=== PATIENT | female | born 1980 | race Caucasian/White ===

== ENCOUNTER 2019-09-26 18:48 | Emergency (ER) | payer MEDICAID ==
[2019-09-26 19:10] VITALS: BP 150/105; PULSE 101
--- NOTE | 2019-09-26 20:05 | EDM.PDOC ---
ED HPI GENERAL MEDICAL PROBLEM - General Chief Complaint: Lower Extremity Injury/Pain Stated Complaint: INJURED RIGHT FOOT-DROPPED A CHAIR ON IT Time Seen by Provider: 09/26/19 19:13 Source of Information: Reports: Patient History Limitations: Reports: No Limitations - History of Present Illness INITIAL COMMENTS - FREE TEXT/NARRATIVE: Patient is a 38-year-old female who presents to the emergency department with complaints of pain to her right lateral foot. She states last evening she dropped a wooden bench on her foot and has had pain since that time. She is able to bear weight extremity, however it is painful. She has been taken Tylenol for pain. She has had surgery on the foot in the past as because her "bones were too long ". She denies any previous fracture to the extremity. Right Foot Pain Score (Numeric/FACES): 6 - Related Data Allergies Allergy/AdvReac Type Severity Reaction Status Date / Time Penicillins Allergy Severe Other Verified 09/26/19 19:10 rizatriptan [From Maxalt] AdvReac Severe Nausea and Verified 09/26/19 19:10 Vomiting sumatriptan [From Imitrex] AdvReac Severe Nausea and Verified 09/26/19 19:10 Vomiting Home Meds: Home Meds Acetaminophen/HYDROcodone [[place] 325-5 MG] 1 - 2 tab PO Q6H PRN #40 tablet 01/19/18 [Rx] Gabapentin [Neurontin] 300 mg PO DAILY PRN 09/26/19 [History] Promethazine [Phenadoz] 12.5 mg TOP BID PRN 09/26/19 [History] Rizatriptan Benzoate [Rizatriptan] 10 mg PO TID PRN 09/26/19 [History] Past Medical History - Past Health History Medical/Surgical History: Denies Medical/Surgical History HEENT History: Reports: Allergic Rhinitis, Sinusitis Cardiovascular History: Reports: None Respiratory History: Reports: Other (See Below) Other Respiratory History: acute URI Gastrointestinal History: Reports: Other (See Below) Other Gastrointestinal History: nausea, elevated liver enzymes Genitourinary History: Reports: None 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 , , 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: hx ectopic ; 2 SAB Musculoskeletal History: Reports: None Neurological History: Reports: Migraines Psychiatric History: Reports: Anxiety, Depression Endocrine/Metabolic History: Reports: None Hematologic History: Reports: Anemia Other Hematologic History: Pt states blood is "too thick." Immunologic History: Reports: None Oncologic (Cancer) History: Reports: None Dermatologic History: Reports: Other (See Below) Other Dermatologic History: skin infection - Infectious Disease History Infectious Disease History: Reports: Chicken Pox - Past Surgical History Head Surgeries/Procedures: Reports: None HEENT Surgical History: Reports: Tonsillectomy Cardiovascular Surgical History: Reports: None Respiratory Surgical History: Reports: None GI Surgical History: Reports: None Female Surgical History: Reports: Other (See Below) Other Female Surgeries/Procedures: Left Salpingoectomy due to eptopic pregancy-2013. Endocrine Surgical History: Reports: None Neurological Surgical History: Reports: None Musculoskeletal Surgical History: Reports: Other (See Below) Other Musculoskeletal Surgeries/Procedures:: pt states that she has had her finger sewn back on---left 4th digit Oncologic Surgical History: Reports: None Social & Family History - Family History Family Medical History: Noncontributory - Caffeine Use Caffeine Use: Reports: Coffee, Soda Caffeine Use Comment: 1-2 per day - Living Situation & Occupation Living situation: Reports: Other Occupation: Unemployed Review of Systems - Review of Systems Review Of Systems: Comprehensive ROS is negative, except as noted in HPI. ED EXAM, GENERAL - Physical Exam Exam: See Below Exam Limited By: No Limitations General Appearance: Alert, WD/WN, No Apparent Distress Respiratory/Chest: No Respiratory Distress, Lungs Clear, Normal Breath Sounds, No Accessory Muscle Use, Chest Non-Tender Cardiovascular: Normal Peripheral Pulses, Regular Rate, Rhythm, No Edema, No Gallop, No JVD, No Murmur, No Rub Extremities: Other (Tenderness to palpation over the dorsal lateral aspect of the right foot. Small amount of edema and ecchymosis present. CMS intact distal to the injury.) Course - Vital Signs Last Recorded V/S: Last Vital Signs Temp 99.1 F 09/26/19 19:04 Pulse 101 H 09/26/19 19:04 Resp 18 09/26/19 19:04 BP 150/105 H 09/26/19 19:04 Pulse Ox 99 09/26/19 19:04 - Orders/Labs/Meds Orders: Active Orders 24 hr Category Date Time Status DME for Discharge [COMM] Routine Oth 09/26/19 20:32 Ordered - Re-Assessments/Exams Free Text/Narrative Re-Assessment/Exam: 09/26/19 20:33 X-ray of the right foot was negative for any acute fractures. Patient has a walking boot at home. I have applied Sandip wrap to the right foot. We will give her crutches to use as needed for the next few days. Recommend ice and elevation. Discussed that she still having significant discomfort after 1 week, would like her to follow-up with Dr. Edward for evaluation. Discharge instructions as documented. Departure - Departure Time of Disposition: 20:34 Disposition: Home, Self-Care 01 Condition: Good Clinical Impression: Contusion of foot, right Qualifiers: Encounter type: initial encounter Qualified Code(s): S90.31XA - Contusion of right foot, initial encounter - Discharge Information *PRESCRIPTION DRUG MONITORING PROGRAM REVIEWED*: No *COPY OF PRESCRIPTION DRUG MONITORING REPORT IN PATIENT DESTINY: No Instructions: Foot Contusion, [id number] Referrals: Pascual Edward MD [Physician] - Forms: ED Department Discharge Additional Instructions: You were seen in the emergency department today for pain to your right lateral foot after dropping a bench on it. X-rays were completed and showed no acute fractures. Your pain is due to a soft tissue injury, contusion of the foot. An Sandip wrap has been applied to your foot for comfort. You have been provided crutches. You may use these for comfort for the next few days. You may also try using your walking boot that you have at home. Recommend that you ice and elevate foot intermittently over the next few days. You may use [id number] ibuprofen or Tylenol as needed for pain. If you are still having significant pain to the foot after 1 week, recommend that you follow-up with Dr. Edward for reevaluation. Return to the ER as needed. Sepsis Event Note (ED) - Evaluation Sepsis Screening Result: No Definite Risk - Focused Exam Vital Signs: Vital Signs Temp Pulse Resp BP Pulse Ox 09/26/19 19:04 99.1 F 101 H 18 150/105 H 99 - My Orders Last 24 Hours: My Active Orders 09/26/19 20:32 DME for Discharge [COMM] Routine - Assessment/Plan Last 24 Hours: My Active Orders 09/26/19 20:32 DME for Discharge [COMM] Routine
--- NOTE | 2019-09-26 20:26 | CR ---
Right foot: 4 views of the right foot were obtained. Comparison: Previous foot exam of 08/18/16. Joint spaces are preserved. No discrete fracture, dislocation or other bony abnormality is appreciated. Impression: 1. No abnormality is appreciated on right foot exam. Diagnostic code #1 This report was dictated in MDT
== END 2019-09-26 20:42 | disposition home or self-care (01) ==
LOC: JD.ED 18:48
DX: S90.31XA Contusion of right foot, initial encounter (principal); Z88.0 Allergy status to penicillin; Z88.8 Allergy status to other drugs, medicaments and biological substances; Z79.899 Other long term (current) drug therapy; W20.8XXA Other cause of strike by thrown, projected or falling object, initial encounter
CPT/HCPCS: 73630-26-RT; 73630-RT; 99282; 99283-25

== ENCOUNTER 2019-10-01 16:30 | Emergency (ER) | payer MEDICAID ==
[2019-10-01] MEDS ORDERED: Promethazine 25 MG/ML SDV IM ONE (16:50)
[2019-10-01] MEDS ORDERED: Ketorolac 60 MG/2 ML SDV IM ONE (16:50)
[2019-10-01] MEDS ORDERED: diphenhydrAMINE 50 MG/ML SDV IM ONE (16:51)
--- NOTE | 2019-10-01 17:02 | EDM.PDOC ---
ED HPI GENERAL MEDICAL PROBLEM - General Chief Complaint: Headache Stated Complaint: MIGRAINE Time Seen by Provider: 10/01/19 16:49 Source of Information: Reports: Patient, RN Notes Reviewed History Limitations: Reports: No Limitations - History of Present Illness INITIAL COMMENTS - FREE TEXT/NARRATIVE: Patient is a 39-year-old female who presents to the ED for the evaluation of her migraine headache. She notes that she is prone to getting migraine headaches, she states that she started her menses yesterday, and developed a migraine today. She states this is very typical for her. Her headache is on the right side of her head, with a throbbing/pounding in nature. She notes that she usually goes [facility], but they were busy and could not fit her into the schedule. So she comes to the ER for management. She states she usually gets a shot of Toradol, and then either some Phenergan or Zofran. She notes this does resolve her headache pretty well. She does have nausea and vomiting, light and sound sensitivity. She states she is not seeing any spots in her vision. She has already taken her Maxalt today for this. She denies any fever/chills, cough/shortness of breath, or any sort of abdomen pain. Headache Pain Score (Numeric/FACES): 8 - Related Data Allergies Allergy/AdvReac Type Severity Reaction Status Date / Time Penicillins Allergy Severe Other Verified 10/01/19 16:44 rizatriptan [From Maxalt] AdvReac Severe Nausea and Verified 10/01/19 16:44 Vomiting sumatriptan [From Imitrex] AdvReac Severe Nausea and Verified 10/01/19 16:44 Vomiting Home Meds: Home Meds Acetaminophen/HYDROcodone [[place] 325-5 MG] 1 - 2 tab PO Q6H PRN #40 tablet 01/19/18 [Rx] Gabapentin [Neurontin] 300 mg PO DAILY PRN 09/26/19 [History] Promethazine [Phenadoz] 12.5 mg TOP BID PRN 09/26/19 [History] Rizatriptan Benzoate [Rizatriptan] 10 mg PO TID PRN 09/26/19 [History] Past Medical History HEENT History: Reports: Allergic Rhinitis, Sinusitis Gastrointestinal History: Reports: Other (See Below) Other Gastrointestinal History: hx/o elevated liver enzymes 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 , , 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 Musculoskeletal Surgical History: Reports: Other (See Below) Other Musculoskeletal Surgeries/Procedures:: pt states that she has had her finger sewn back on---left 4th digit Social & Family History - Family History Family Medical History: Noncontributory - Tobacco Use Smoking Status *Q: Current Every Day Smoker Years of Tobacco use: 15 Packs/Tins Daily: 0.5 - Caffeine Use Caffeine Use: Reports: None Caffeine Use Comment: 1-2 per day - Recreational Drug Use Recreational Drug Use: Yes Drug Use in Last 12 Months: No - Living Situation & Occupation Living situation: Reports: Other Occupation: Unemployed ED ROS GENERAL - Review of Systems Review Of Systems: Comprehensive ROS is negative, except as noted in HPI. - Physical Exam Exam: See Below Exam Limited By: No Limitations General Appearance: Alert, WD/WN, No Apparent Distress Head Exam: Atraumatic, Normocephalic Neck: Normal Inspection, Supple, Non-Tender, Full Range of Motion Respiratory/Chest: No Respiratory Distress, Lungs Clear, Normal Breath Sounds, No Accessory Muscle Use, Chest Non-Tender Cardiovascular: Normal Peripheral Pulses, Regular Rate, Rhythm, No Murmur Neuro Exam (Abbreviated): Alert, Oriented, Normal Cognition, No Motor/Sensory Deficits Extremities: Normal Inspection, Normal Capillary Refill Psychiatric: Normal Affect, Normal Mood Skin Exam: Warm, Dry, Intact, Normal Color, No Rash Course - Vital Signs Last Recorded V/S: Last Vital Signs Temp 97.4 F 10/01/19 16:43 Pulse 87 10/01/19 16:43 Resp 16 10/01/19 16:43 BP 127/94 H 10/01/19 16:43 Pulse Ox 98 10/01/19 16:43 - Orders/Labs/Meds Meds: Medications Discontinued Medications Generic Name Dose Route Start Last Admin Trade Name Betty PRCasimiro Reason Stop Dose Admin Diphenhydramine HCl 25 mg 10/01/19 16:51 10/01/19 17:18 Benadryl IM 10/01/19 16:52 25 mg ONETIME ONE Administration Ketorolac Tromethamine 60 mg 10/01/19 16:50 10/01/19 17:15 Toradol IM 10/01/19 16:51 60 mg ONETIME ONE Administration Promethazine HCl 25 mg 10/01/19 16:50 10/01/19 17:16 Phenergan IM 10/01/19 16:51 25 mg ONETIME ONE Administration - Re-Assessments/Exams Free Text/Narrative Re-Assessment/Exam: 10/01/19 17:02 Patient presents to the ED for a migraine. She will be given IM shots of Toradol, Benadryl and Phenergan for management. 10/01/19 17:59 Patient states she is feeling much better, is ready to go home at this time. She will be given discharge instructions and other general recommendations and discharged home. Departure - Departure Time of Disposition: 17:59 Disposition: Home, Self-Care 01 Condition: Good Clinical Impression: Migraine Qualifiers: Migraine type: without aura Status migrainosus presence: without status migrainosus Intractability: not intractable Qualified Code(s): G43.009 - Migraine without aura, not intractable, without status migrainosus - Discharge Information *PRESCRIPTION DRUG MONITORING PROGRAM REVIEWED*: No *COPY OF PRESCRIPTION DRUG MONITORING REPORT IN PATIENT DESTINY: No Instructions: Migraine Headache, [id number] Referrals: PCP,None [Primary Care Provider] - Forms: ED Department Discharge Additional Instructions: You were evaluated in the ED for your headache. You were given a combination of medications for management. This did seem to provide you pretty good relief of your symptoms. Recommend that you go home and rest in a quiet, darkened room. Try also to keep well hydrated. Please return to the ED if your symptoms should change or worsen. Sepsis Event Note (ED) - Evaluation Sepsis Screening Result: No Definite Risk - Focused Exam Vital Signs: Vital Signs Temp Pulse Resp BP Pulse Ox 10/01/19 16:43 97.4 F 87 16 127/94 H 98
[2019-10-01 18:02] VITALS: PULSE 70
[2019-10-01 18:36] VITALS: BP 129/88
== END 2019-10-01 18:32 | disposition home or self-care (01) ==
LOC: JD.ED 16:30
DX: G43.009 Migraine without aura, not intractable, without status migrainosus (principal); F17.210 Nicotine dependence, cigarettes, uncomplicated; Z88.0 Allergy status to penicillin; Z88.8 Allergy status to other drugs, medicaments and biological substances
CPT/HCPCS: 96372; 99283; J1200; J1885; J2550

== ENCOUNTER 2019-10-23 16:36 | Emergency (ER) | payer MEDICAID ==
[2019-10-23 16:45] VITALS: BP 142/75; PULSE 110
[2019-10-23] MEDS ORDERED: Ketorolac 30 MG/ML SDV IM ONE (16:55)
[2019-10-23] MEDS ORDERED: Promethazine 25 MG/ML SDV IM ONE (16:56)
--- NOTE | 2019-10-23 17:15 | EDM.PDOC ---
ED HPI GENERAL MEDICAL PROBLEM - General Chief Complaint: Headache Stated Complaint: MIGRAINE Time Seen by Provider: 10/23/19 16:44 Source of Information: Reports: Patient History Limitations: Reports: No Limitations - History of Present Illness INITIAL COMMENTS - FREE TEXT/NARRATIVE: Patient is a 39-year-old female presenting to the emergency department with complaints of a migraine headache. Symptoms started a few hours prior to coming to ER. She describes it as generalized pain throughout her head with light sensitivity as well as nausea and vomiting. Patient states that she gets a migraine every month before she starts her period. This feels like a typical migraine for her. She has taken her Maxalt today with no relief. She denies any dizziness or paresthesia. She has been seen in the ER and the [facility] on a number of occasions for this. States she normally gets a injection of Toradol and Phenergan which works well for her. She does state the last time she was in the ER she received an injection of Benadryl as well, however that made her quite tired and she felt hung over the next day. Headache Pain Score (Numeric/FACES): 7 - Related Data Allergies Allergy/AdvReac Type Severity Reaction Status Date / Time Penicillins Allergy Severe Other Verified 10/23/19 16:46 rizatriptan [From Maxalt] AdvReac Severe Nausea and Verified 10/23/19 16:46 Vomiting sumatriptan [From Imitrex] AdvReac Severe Nausea and Verified 10/23/19 16:46 Vomiting Home Meds: Home Meds Gabapentin [Neurontin] 300 mg PO DAILY PRN 09/26/19 [History] Promethazine [Phenadoz] 12.5 mg TOP BID PRN 09/26/19 [History] Past Medical History - Past Health History Medical/Surgical History: Denies Medical/Surgical History HEENT History: Reports: Allergic Rhinitis, Sinusitis Cardiovascular History: Reports: None Respiratory History: Reports: Other (See Below) Other Respiratory History: acute URI Gastrointestinal History: Reports: Other (See Below) Other Gastrointestinal History: hx/o elevated liver enzymes Genitourinary History: Reports: None 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 , , 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: hx ectopic ; 2 SAB Musculoskeletal History: Reports: None Neurological History: Reports: Migraines Psychiatric History: Reports: Anxiety, Depression Endocrine/Metabolic History: Reports: None Hematologic History: Reports: Anemia Other Hematologic History: Pt states blood is "too thick." Immunologic History: Reports: None Oncologic (Cancer) History: Reports: None Dermatologic History: Reports: Other (See Below) Other Dermatologic History: skin infection - Infectious Disease History Infectious Disease History: Reports: None - Past Surgical History HEENT Surgical History: Reports: Tonsillectomy Cardiovascular Surgical History: Reports: None Respiratory Surgical History: Reports: None Female Surgical History: Reports: Tubal Ligation, Other (See Below) Other Female Surgeries/Procedures: Left Salpingectomy due to eptopic pregancy-2013. Endocrine Surgical History: Reports: None Musculoskeletal Surgical History: Reports: Other (See Below) Other Musculoskeletal Surgeries/Procedures:: pt states that she has had her finger sewn back on---left 4th digit. Foot surgery. Oncologic Surgical History: Reports: None Social & Family History - Family History Family Medical History: Noncontributory - Tobacco Use Smoking Status *Q: Current Every Day Smoker Years of Tobacco use: 15 Packs/Tins Daily: 1 - Caffeine Use Caffeine Use: Reports: Energy Drinks, Soda Caffeine Use Comment: 1-2 per day - Recreational Drug Use Recreational Drug Use: No - Living Situation & Occupation Living situation: Reports: Other Occupation: Unemployed ED ROS GENERAL - Review of Systems Review Of Systems: Comprehensive ROS is negative, except as noted in HPI. - Physical Exam Exam: See Below Exam Limited By: No Limitations General Appearance: Alert, WD/WN, No Apparent Distress Eye Exam: Bilateral Eye: Normal Inspection, PERRL Respiratory/Chest: No Respiratory Distress, Lungs Clear, Normal Breath Sounds, No Accessory Muscle Use, Chest Non-Tender Cardiovascular: Normal Peripheral Pulses, Regular Rate, Rhythm, No Edema, No Gallop, No JVD, No Murmur, No Rub Neuro Exam (Abbreviated): Alert, Oriented, CN II-XII Intact, Normal Cognition, Normal Gait, Normal Reflexes, No Motor/Sensory Deficits Psychiatric: Normal Affect, Normal Mood Skin Exam: Warm, Dry, Intact, Normal Color, No Rash Course - Vital Signs Last Recorded V/S: Last Vital Signs Temp 97.2 F 10/23/19 16:43 Pulse 110 H 10/23/19 16:43 Resp 16 10/23/19 16:43 BP 142/75 H 10/23/19 16:43 Pulse Ox 100 10/23/19 16:43 - Orders/Labs/Meds Meds: Medications Discontinued Medications Generic Name Dose Route Start Last Admin Trade Name Betty AMADOR Reason Stop Dose Admin Ketorolac Tromethamine 60 mg 10/23/19 16:55 10/23/19 17:27 Toradol IM 10/23/19 16:56 60 mg ONETIME ONE Administration Promethazine HCl 25 mg 10/23/19 16:56 10/23/19 17:28 Phenergan IM 10/23/19 16:57 25 mg ONETIME ONE Administration - Re-Assessments/Exams Free Text/Narrative Re-Assessment/Exam: 10/23/19 18:06 Patient is feeling much better after the Toradol and Phenergan injection. We will discharge her home. Discharge instructions as documented. Departure - Departure Time of Disposition: 18:06 Disposition: Home, Self-Care 01 Condition: Good Clinical Impression: Migraine - Discharge Information *PRESCRIPTION DRUG MONITORING PROGRAM REVIEWED*: No *COPY OF PRESCRIPTION DRUG MONITORING REPORT IN PATIENT DESTINY: No Instructions: Migraine Headache, [id number] Referrals: PCP,None [Primary Care Provider] - Forms: ED Department Discharge Additional Instructions: You were seen in the emergency department this evening with complaints of a migraine headache. While in the injection of Toradol and Phenergan which you state did improve your headache significantly. Recommend that you go home and rest in a quiet dark room. You may continue to use [id number] Tylenol, ibuprofen, and your prescription Maxalt as needed for headaches. Return to ER as needed. Sepsis Event Note (ED) - Evaluation Sepsis Screening Result: No Definite Risk - Focused Exam Vital Signs: Vital Signs Temp Pulse Resp BP Pulse Ox 10/23/19 16:43 97.2 F 110 H 16 142/75 H 100
== END 2019-10-23 18:11 | disposition home or self-care (01) ==
LOC: JD.ED 16:36
DX: G43.909 Migraine, unspecified, not intractable, without status migrainosus (principal); F17.210 Nicotine dependence, cigarettes, uncomplicated; Z98.51 Tubal ligation status; Z88.0 Allergy status to penicillin; Z88.8 Allergy status to other drugs, medicaments and biological substances; Z79.899 Other long term (current) drug therapy
CPT/HCPCS: 96372; 99283; J1885; J2550

== ENCOUNTER 2019-11-21 06:51 | Day surgery (SDC) | payer MEDICAID ==
--- NOTE | 2019-11-20 12:25 | PCM.PREANE ---
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, ETOH:occasionally), Cough (chronic dry) Cardiovascular: Palpitations (anxiety) Gastrointestinal: No Symptoms (GERD-controlled) Neurological: Headache (Migraines), Numbness (right foot two toes-from prior foot surgery (3yrs ago)), Seizure (last noted 2014) Other: Reports: None, Easy Bruising, Sinus Problem (seasonal allergies), Depression, Anxiety - Physical Assessment NPO Status Date: 11/20/19 NPO Status Time: 22:00 Vital Signs: HR:84 Sat:100% Temp:97.7 Resp:16 B/P:131/91 Height: 1.63 m Weight: 59 kg ASA Class: 2 Mental Status: Alert & Oriented x3 Airway Class: Mallampati = 2 Dentition: Reports: Normal Dentition, Caries Thyro-Mental Finger Breadths: 3 Mouth Opening Finger Breadths: 3 ROM/Head Extension: Full Lungs: Clear to Auscultation, Normal Respiratory Effort Cardiovascular: Regular Rate, Regular Rhythm, No Murmurs - Lab Values: All labs reviewed and noted and within acceptable ranges to proceed with scheduled procedure. - Allergies Allergies/Adverse Reactions: Allergies Allergy/AdvReac Type Severity Reaction Status Date / Time Penicillins Allergy Severe Other Verified 11/20/19 14:43 sumatriptan [From Imitrex] AdvReac Severe Nausea and Verified 11/20/19 14:43 Vomiting - Anesthesia Plan Pre-Op Medication Ordered: None - Acknowledgements Anesthesia Type Planned: General Anesthesia Pt an Appropriate Candidate for the Planned Anesthesia: Yes Alternatives and Risks of Anesthesia Discussed w Pt/Guardian: Yes Pt/Guardian Understands and Agrees with Anesthesia Plan: Yes PreAnesthesia Questionnaire - Past Health History Medical/Surgical History: Denies Medical/Surgical History HEENT History: Reports: Allergic Rhinitis, Sinusitis Cardiovascular History: Reports: None Respiratory History: Reports: Other (See Below) Other Respiratory History: acute URI Gastrointestinal History: Reports: Other (See Below) Other Gastrointestinal History: hx/o elevated liver enzymes Genitourinary History: Reports: None MILLER HEAD History: Reports: Ectopic , , Spontaneous Other OB/BYN History: hx ectopic ; 2 SAB Musculoskeletal History: Reports: None Neurological History: Reports: Migraines Psychiatric History: Reports: Anxiety, Depression Endocrine/Metabolic History: Reports: None Hematologic History: Reports: Anemia Other Hematologic History: Pt states blood is "too thick." Immunologic History: Reports: None Oncologic (Cancer) History: Reports: None Dermatologic History: Reports: Other (See Below) Other Dermatologic History: skin infection - Infectious Disease History Infectious Disease History: Reports: None - Past Surgical History HEENT Surgical History: Reports: Tonsillectomy Cardiovascular Surgical History: Reports: None Respiratory Surgical History: Reports: None Female Surgical History: Reports: Tubal Ligation, Other (See Below) Other Female Surgeries/Procedures: Left Salpingectomy due to eptopic pregancy-2012. Endocrine Surgical History: Reports: None Musculoskeletal Surgical History: Reports: Other (See Below) Other Musculoskeletal Surgeries/Procedures:: pt states that she has had her finger sewn back on---left 4th digit. Foot surgery. Oncologic Surgical History: Reports: None - HOME MEDS Home Medications: Home Meds Promethazine [Phenadoz] 12.5 mg TOP BID PRN 09/26/19 [History] Gabapentin [Neurontin] 600 mg PO BEDTIME PRN 11/20/19 [History] Hydrocodone/Acetaminophen [[place] 5-325 Tablet] 1 tab PO Q6H PRN 11/20/19 [History] Multivitamin 1 tab PO DAILY 11/20/19 [History] Rizatriptan Benzoate [Rizatriptan] 10 mg PO ASDIRECTED PRN 11/20/19 [History] - CURRENT (IN HOUSE) MEDS Current Meds: Current Medications Lactated Ringer's (Ringers, Lactated) 1,000 mls @ 125 mls/hr IV ASDIRECTED NICOLÁS Stop: 11/21/19 23:00 Lidocaine/Sodium Bicarbonate (Buffered Lidocaine 1% In Ns 8.4%) 0.25 ml IDERM ONETIME PRN PRN Reason: Prior to IV Start Stop: 11/21/19 18:00 Sodium Chloride (Saline Flush) 10 ml FLUSH ASDIRECTED PRN PRN Reason: Keep Vein Open Stop: 11/21/19 18:00
[~2019-11-21 06:51] MED LIST: Lidocaine 1%/Sod Bicarbonate in NS 8.4% 1 ML Syringe IDERM PRN; Sodium Chloride 0.9% 10 ML Syringe FLUSH PRN
[2019-11-21] MEDS ORDERED: Lidocaine 1% 4 ML ONE (07:04)
[2019-11-21] MEDS ORDERED: Ketorolac 30 MG/ML SDV ONE (07:04)
[2019-11-21] MEDS ORDERED: ceFAZolin 1 GM Vial ONE (07:04)
[2019-11-21] MEDS ORDERED: Dexamethasone 4 MG/ML 5 ML MDV ONE (07:04)
[2019-11-21] MEDS ORDERED: Ondansetron 4 MG/2 ML SDV ONE (07:04)
[2019-11-21] MEDS ORDERED: Rocuronium 50 MG/5 ML Vial ONE (07:04)
[2019-11-21] MEDS ORDERED: HYDROmorphone 0.5 MG/0.5 ML Syringe ONE (07:04)
[2019-11-21] MEDS ORDERED: Lactated Ringers 1,000 ML ONE (07:04)
[2019-11-21] MEDS ORDERED: Propofol 200 MG/20 ML SDV ONE (07:04)
[2019-11-21] MEDS ORDERED: fentaNYL 250 MCG/5 ML SDV ONE (07:05)
[2019-11-21] MEDS ORDERED: Midazolam 1 MG/ML 2 ML SDV ONE (07:05)
--- NOTE | 2019-11-21 07:05 | PCM.OPNOTE ---
- General Post-Op/Procedure Note Date of Surgery/Procedure: 11/21/19 Operative Procedure(s): Total vaginal hysterectomy Findings: SVE showed a mobile, anteverted uterus. After uterus removed grossly normal right ovary. Difficult to appreciate left ovary. Pre Op Diagnosis: Abnormal uterine bleeding - declines medical management Post-Op Diagnosis: Same Anesthesia Technique: General ET Tube Primary Surgeon: Génesis Mac Secondary Surgeon: Natalie Ramírez Anesthesia Provider: Jasmyne Ferraro Reason Account Planner Was Necessary: Speed/safety of procedure Pathology: Cervix and uterus sent to pathology for evaluation Fluid Replacement, Intraop: 1,100 Output, Urine Amount: 300 EBL in mLs: 20 Complications: None Condition: Good Free Text/Narrative:: The risks, benefits, indications, potential complications, and alternatives were explained to the patient and informed consent obtained. The patient was taken to the Operating Room where general anesthesia was induced without complication and found to be adequate. The patient was placed in dorsal lithotomy with Winston stirrups and an exam under anesthesia revealed the findings detailed above. The patient was then prepped and draped in the usual sterile fashion. Carr catheter placed in the bladder. A weighted speculum was placed in the vagina, and the cervix was grasped with a double tooth tenaculum. The cervix was injected circumferentially with ~20 mL of 1% lidocaine with dilute epinephrine. The cervix was then circumferentially incised with a scalpel. The posterior cul-de-sac was entered sharply without difficulty with Dixon scissors. An 0-Vicryl pop-off suture was placed posteriorly to include the posterior vaginal mucosa and the posterior peritoneum. The short weighted speculum was replaced with a long weighted speculum into the peritoneal cavity posteriorly. The bladder was dissected away from the pubovesical cervical fascia anteriorly with a sponge and blunt dissection. The uterosacral ligaments were grasped on either side with the LigaSure, cauterized, and transected. A raytec was used for further blunt dissection of the bladder away from the pubovesical cervical fascia and then the anterior cul de sac was entered sharply with Metzenbaum scissors. The cardinal ligaments were then serially clamped on both sides with the LigaSure, cauterized, and transected. The uterine arteries were then clamped with the LigaSure, cauterized, and transected. Hemostasis was adequate. Both cornua were then clamped with the LigaSure, cauterized, and transected and the uterus was removed. The posterior peritoneum was closed with a running, locked 0 Vicryl suture. The vaginal cuff was then closed with two running sutures of 0 Vicryl started at either apex and run towards the mid-line. Hemostasis was noted. All sponge, lap, needle, and instrument counts were correct x 2. The patient tolerated the procedure well and there were no complications.
[2019-11-21] MEDS: Lactated Ringers 1,000 ML IV SCH ×2 (07:13→15:06)
[2019-11-21] MEDS ORDERED: Lidocaine 1% with EPINEPHrine 1:100,000 20 ML MDV ONE (07:26)
[2019-11-21] MEDS ORDERED: Scopolamine 1.5 MG Transdermal Patch TRDERM SCH (08:00)
[2019-11-21] MEDS ORDERED: fentaNYL 100 MCG/2 ML SDV IVPUSH PRN (08:22)
[2019-11-21] MEDS ORDERED: ePHEDrine 50 MG/ML SDV IVPUSH PRN (08:22)
[2019-11-21] MEDS ORDERED: HYDROmorphone 0.5 MG/0.5 ML Syringe IVPUSH PRN (08:22)
[2019-11-21] MEDS ORDERED: Ondansetron 4 MG/2 ML SDV IVPUSH PRN (08:22)
[2019-11-21] MEDS ORDERED: Albuterol 0.083% 2.5 MG/3 ML Neb Soln NEB PRN (08:22)
[2019-11-21] MEDS ORDERED: diphenhydrAMINE 50 MG/ML SDV IVPUSH PRN (08:22)
[2019-11-21] MEDS ORDERED: Haloperidol Lactate 5 MG/ML SDV IVPUSH ONE (09:00)
--- NOTE | 2019-11-21 09:14 | PCM.POSTAN ---
POST ANESTHESIA ASSESSMENT - MENTAL STATUS Mental Status: Alert - VITAL SIGNS Vital Signs: Last Vital Signs Temp 97.7 11/21/19906 Pulse 95 11/21/19906 Resp 15 11/21/19906 BP 132/88 11/21/19906 Pulse Ox 100 11/21/19906 - RESPIRATORY Respiratory Status: Respiratory Rate WNL, Airway Patent, O2 Saturation Stable, Supplemental Oxygen - CARDIOVASCULAR CV Status: Pulse Rate WNL, Blood Pressure Stable - GASTROINTESTINAL GI Status: No Symptoms - POST OP HYDRATION Hydration Status: Adequate & Stable
[2019-11-21] MEDS ORDERED: Acetaminophen/oxyCODONE 325-5 MG Tab PO PRN (09:57)
--- NOTE | 2019-11-21 10:20 | PCM48HPAN ---
Post Anesthesia Note - EVALUATION WITHIN 48HRS OF ANESTHETIC Vital Signs in Normal Range: Yes Patient Participated in Evaluation: Yes Respiratory Function Stable: Yes Airway Patent: Yes Cardiovascular Function Stable: Yes Hydration Status Stable: Yes Pain Control Satisfactory: Yes Nausea and Vomiting Control Satisfactory: Yes Mental Status Recovered: Yes Vital Signs: Last Vital Signs Temp 36.4 C 11/21/19 09:50 Pulse 69 11/21/19 09:50 Resp 10 L 11/21/19 09:50 BP 119/80 11/21/19 09:50 Pulse Ox 97 11/21/19 09:50
[2019-11-21 13:59] VITALS: BP 113/83; PULSE 70
== END 2019-11-21 11:55 | disposition home or self-care (01) ==
LOC: JD.SDS 06:51
PROVIDERS: ATTEND Obstetrics & Gynecology
DX: N80.0 Endometriosis of uterus (principal); N72 Inflammatory disease of cervix uteri; G43.909 Migraine, unspecified, not intractable, without status migrainosus; F17.210 Nicotine dependence, cigarettes, uncomplicated; G47.33 Obstructive sleep apnea (adult) (pediatric); K21.9 Gastro-esophageal reflux disease without esophagitis; F32.9 Major depressive disorder, single episode, unspecified; F41.9 Anxiety disorder, unspecified; Z98.890 Other specified postprocedural states; Z79.899 Other long term (current) drug therapy; Z88.0 Allergy status to penicillin; Z88.8 Allergy status to other drugs, medicaments and biological substances
CPT/HCPCS: 36415; 58260; 80048; 85025; 86850; 86900; 86901; A9270; J0690; J1100; J1170; J1885; J2001; J2250; J2370; J2405; J2704; J2710; J3010; J7120; 00840

== ENCOUNTER 2020-01-31 20:11 | Day surgery (SDC) | payer MEDICAID ==
[2020-01-31] MEDS ORDERED: Sodium Chloride 0.9% 1,000 ML IV STA (20:38)
--- NOTE | 2020-01-31 20:41 | EDM.PDOC ---
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 She is 9 weeks post vaginal hysterectomy. States she has had intercourse prior to this evening and never had problems with bleeding. Bleeding began about 15 minutes prior to coming to ER. She denies any pain associated with the bleeding. Vaginal Pain Score (Numeric/FACES): 6 - Related Data Allergies Allergy/AdvReac Type Severity Reaction Status Date / Time Penicillins Allergy Unknown Other Verified 02/01/20 08:31 sumatriptan [From Imitrex] AdvReac Mild Nausea and Verified 02/01/20 08:31 Vomiting Home Meds: Home Meds Promethazine [Phenadoz] 12.5 mg TOP BID PRN 09/26/19 [History] Gabapentin [Neurontin] 600 mg PO BEDTIME PRN 11/20/19 [History] Multivitamin 1 tab PO DAILY 11/20/19 [History] Rizatriptan Benzoate [Rizatriptan] 10 mg PO ASDIRECTED PRN 11/20/19 [History] Acetaminophen/oxyCODONE [Percocet 325-5 MG] 1 - 2 tab PO Q6H PRN #30 tab 11/21/19 [Rx] Past Medical History - Past Health History Medical/Surgical History: Denies Medical/Surgical History HEENT History: Reports: Allergic Rhinitis, Sinusitis Cardiovascular History: Reports: None Respiratory History: Reports: Other (See Below) Other Respiratory History: acute URI Gastrointestinal History: Reports: Other (See Below) Other Gastrointestinal History: hx/o elevated liver enzymes Genitourinary History: Reports: None 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: Reports: Ectopic , , Spontaneous Other 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: hx ectopic ; 2 SAB Musculoskeletal History: Reports: None Neurological History: Reports: Migraines Psychiatric History: Reports: Anxiety, Depression Endocrine/Metabolic History: Reports: None Hematologic History: Reports: Anemia Other Hematologic History: Pt states blood is "too thick." Immunologic History: Reports: None Oncologic (Cancer) History: Reports: None Dermatologic History: Reports: Other (See Below) Other Dermatologic History: skin infection - Infectious Disease History Infectious Disease History: Reports: None - Past Surgical History HEENT Surgical History: Reports: Tonsillectomy GI Surgical History: Reports: None Female Surgical History: Reports: Tubal Ligation, Other (See Below) Other Female Surgeries/Procedures: Left Salpingectomy due to eptopic pregancy-2012. Endocrine Surgical History: Reports: None Musculoskeletal Surgical History: Reports: Other (See Below) Other Musculoskeletal Surgeries/Procedures:: pt states that she has had her finger sewn back on---left 4th digit. Foot surgery. Social & Family History - Family History Family Medical History: No Pertinent Family History - Tobacco Use Tobacco Use Status *Q: Current Every Day Tobacco User Years of Tobacco use: 20 Packs/Tins Daily: 0.2 - Caffeine Use Caffeine Use: Reports: Energy Drinks, Soda - Recreational Drug Use Recreational Drug Use: Yes Drug Use in Last 12 Months: No Recreational Drug Type: Reports: Other (see below) Other Recreational Drug Type: adderral - Living Situation & Occupation Living situation: Reports: Other Occupation: Unemployed ED ROS GENERAL - Review of Systems Review Of Systems: Comprehensive ROS is negative, except as noted in HPI. Course - Vital Signs Last Recorded V/S: Last Vital Signs Temp 98.4 F 02/01/20 08:37 Pulse 81 02/01/20 08:37 Resp 14 02/01/20 08:37 BP 106/59 L 02/01/20 08:37 Pulse Ox 100 02/01/20 08:37 - Orders/Labs/Meds Orders: Active Orders 24 hr Category Date Time Status Patient Status [ADT] Routine ADT 01/31/20 21:03 Active Patient Status [ADT] Routine ADT 01/31/20 22:46 Active Schedule Procedure [COMM] Stat Oth 01/31/20 21:04 Ordered Sequential Compression Device [OM.PC] Per Unit Routine Oth 01/31/20 22:47 Ordered Resuscitation Status Routine Resus Stat 01/31/20 22:46 Ordered Labs: Laboratory Tests 01/31/20 01/31/20 01/31/20 Range/Units 20:40 20:40 20:40 WBC 9.28 (3.98-10.04) K/mm3 RBC 4.13 (3.98-5.22) M/mm3 Hgb 13.3 (11.2-15.7) gm/dl Hct 41.0 (34.1-44.9) % MCV 99.3 H (79.4-94.8) fl MCH 32.2 (25.6-32.2) pg MCHC 32.4 (32.2-35.5) g/dl RDW Std Deviation 45.3 (36.4-46.3) fL Plt Count 262 (182-369) K/mm3 MPV 10.4 (9.4-12.3) fl Neut % (Auto) 72.6 H (34.0-71.1) % Lymph % (Auto) 22.3 (19.3-51.7) % Porter % (Auto) 3.8 L (4.7-12.5) % Eos % (Auto) 1.0 (0.7-5.8) Baso % (Auto) 0.1 (0.1-1.2) % Neut # (Auto) 6.74 H (1.56-6.13) K/mm3 Lymph # (Auto) 2.07 (1.18-3.74) K/mm3 Porter # (Auto) 0.35 (0.24-0.36) K/mm3 Eos # (Auto) 0.09 (0.04-0.36) K/mm3 Baso # (Auto) 0.01 (0.01-0.08) K/mm3 Manual Slide Review SARS-CoV-2 RNA (JORDY) (NEGATIVE) SARS CoV-2 RNA Rapid JORDY (NEGATIVE) Blood Type O POSITIVE Gel Antibody Screen Negative Crossmatch See Detail See Detail 01/31/20 01/31/20 01/31/20 Range/Units 20:59 21:05 21:55 WBC (3.98-10.04) K/mm3 RBC (3.98-5.22) M/mm3 Hgb 10.6 L D (11.2-15.7) gm/dl Hct 33.0 L (34.1-44.9) % MCV (79.4-94.8) fl MCH (25.6-32.2) pg MCHC (32.2-35.5) g/dl RDW Std Deviation (36.4-46.3) fL Plt Count (182-369) K/mm3 MPV (9.4-12.3) fl Neut % (Auto) (34.0-71.1) % Lymph % (Auto) (19.3-51.7) % Porter % (Auto) (4.7-12.5) % Eos % (Auto) (0.7-5.8) Baso % (Auto) (0.1-1.2) % Neut # (Auto) (1.56-6.13) K/mm3 Lymph # (Auto) (1.18-3.74) K/mm3 Porter # (Auto) (0.24-0.36) K/mm3 Eos # (Auto) (0.04-0.36) K/mm3 Baso # (Auto) (0.01-0.08) K/mm3 Manual Slide Review SARS-CoV-2 RNA (JORDY) Negative (NEGATIVE) SARS CoV-2 RNA Rapid JORDY Negative (NEGATIVE) Blood Type Gel Antibody Screen Crossmatch 02/01/20 Range/Units 05:12 WBC 9.41 (3.98-10.04) K/mm3 RBC 3.76 L (3.98-5.22) M/mm3 Hgb 11.2 (11.2-15.7) gm/dl Hct 35.2 (34.1-44.9) % MCV 93.6 D (79.4-94.8) fl MCH 29.8 (25.6-32.2) pg MCHC 31.8 L (32.2-35.5) g/dl RDW Std Deviation 58.8 H (36.4-46.3) fL Plt Count 181 L D (182-369) K/mm3 MPV 11.2 (9.4-12.3) fl Neut % (Auto) 92.1 H (34.0-71.1) % Lymph % (Auto) 6.5 L (19.3-51.7) % Porter % (Auto) 1.2 L (4.7-12.5) % Eos % (Auto) 0 L (0.7-5.8) Baso % (Auto) 0.0 L (0.1-1.2) % Neut # (Auto) 8.67 H (1.56-6.13) K/mm3 Lymph # (Auto) 0.61 L (1.18-3.74) K/mm3 Porter # (Auto) 0.11 L (0.24-0.36) K/mm3 Eos # (Auto) 0.00 L (0.04-0.36) K/mm3 Baso # (Auto) 0.00 L (0.01-0.08) K/mm3 Manual Slide Review Abnormal smear SARS-CoV-2 RNA (JORDY) (NEGATIVE) SARS CoV-2 RNA Rapid JORDY (NEGATIVE) Blood Type Gel Antibody Screen Crossmatch Meds: Medications Discontinued Medications Generic Name Dose Route Start Last Admin Trade Name Freq PRN Reason Stop Dose Admin Hydrocodone Bitart/Acetaminophen 1 tab 01/31/20 22:46 02/01/20 00:51 [place] 325-5 Mg PO 1 tab Q3H PRN Administration Pain (moderate 4-6) Dexamethasone Confirm 01/31/20 21:53 Dexamethasone Administered 01/31/20 21:54 Dose 20 mg .ROUTE .STK-MED ONE Diphenhydramine HCl 25 mg 01/31/20 22:56 Benadryl IVPUSH Q6H PRN pruritis Ephedrine Sulfate 5 mg 01/31/20 22:56 Ephedrine Sulfate IVPUSH ASDIRECTED PRN Hypotension Fentanyl Confirm 01/31/20 21:54 Sublimaze Administered 01/31/20 21:55 Dose 250 mcg .ROUTE .STK-MED ONE Fentanyl 50 mcg 01/31/20 22:56 Sublimaze IVPUSH Q5M PRN Pain Glycopyrrolate Confirm 01/31/20 22:37 Robinul Administered 01/31/20 22:38 Dose 0.2 mg .ROUTE .STK-MED ONE Glycopyrrolate Confirm 01/31/20 22:37 Robinul Administered 01/31/20 22:38 Dose 0.8 mg .ROUTE .STK-MED ONE Glycopyrrolate Confirm 01/31/20 22:50 Robinul Administered 01/31/20 22:51 Dose 0.4 mg .ROUTE .STK-MED ONE Hydromorphone HCl 0.5 mg 01/31/20 21:26 01/31/20 21:31 Dilaudid IVPUSH 01/31/20 21:27 0.5 mg ONETIME ONE Administration Sodium Chloride 1,000 mls @ 999 mls/hr 01/31/20 20:38 01/31/20 20:40 Normal Saline IV 01/31/20 21:38 999 mls/hr NOW STA Administration Sodium Chloride Confirm 01/31/20 21:48 01/31/20 22:19 Normal Saline Administered 01/31/20 21:49 Not Given Dose 1,000 mls @ as directed .ROUTE .STK-MED ONE Lidocaine HCl Confirm 01/31/20 21:53 Xylocaine-Mpf 1% Administered 01/31/20 21:54 Dose 4 mls @ as directed .ROUTE .STK-MED ONE Lactated Ringer's Confirm 01/31/20 21:53 Ringers, Lactated Administered 01/31/20 21:54 Dose 2,000 mls @ as directed .ROUTE .STK-MED ONE Sodium Chloride Confirm 01/31/20 21:54 01/31/20 22:19 Normal Saline Administered 01/31/20 21:55 Not Given Dose 250 mls @ as directed .ROUTE .STK-MED ONE Sodium Chloride 1,000 mls @ 1,000 mls/hr 01/31/20 21:48 01/31/20 21:48 Normal Saline IV 01/31/20 22:47 1,000 mls/hr ONETIME ONE Administration Sodium Chloride 250 mls @ 999 mls/hr 01/31/20 21:58 01/31/20 21:58 Normal Saline IV 999 mls/hr ASDIRECTED NICOLÁS Administration Sodium Chloride Confirm 01/31/20 22:19 Normal Saline Administered 01/31/20 22:20 Dose 1,000 mls @ as directed .ROUTE .STK-MED ONE Ibuprofen 600 mg 01/31/20 22:46 02/01/20 04:22 Motrin PO 600 mg Q6H PRN Administration Pain (mild 1-3) Ibuprofen 600 mg 02/01/20 08:30 Motrin PO Q6H PRN Pain (mild 1-3) Ketorolac Tromethamine Confirm 01/31/20 21:53 Toradol Administered 01/31/20 21:54 Dose 30 mg .ROUTE .STK-MED ONE Midazolam HCl Confirm 01/31/20 21:53 Versed 1 Mg/Ml Administered 01/31/20 21:54 Dose 2 mg .ROUTE .STK-MED ONE Miscellaneous Medication Confirm 01/31/20 21:55 Phenylephrine 1 Mg/10 Ml-Ns Administered 01/31/20 21:56 Dose 1 mg .ROUTE .STK-MED ONE Miscellaneous Medication 0 mg 01/31/20 22:56 Phenylephrine 1 Mg/10 Ml-Ns IVPUSH 01/31/20 22:57 ONETIME ONE Neostigmine Methylsulfate Confirm 01/31/20 22:37 Neostigmine Methylsulfate Administered 01/31/20 22:38 Dose 5 mg .ROUTE .STK-MED ONE Neostigmine Methylsulfate Confirm 01/31/20 22:50 Neostigmine Methylsulfate Administered 01/31/20 22:51 Dose 5 mg .ROUTE .STK-MED ONE Ondansetron HCl Confirm 01/31/20 21:53 Zofran Administered 01/31/20 21:54 Dose 4 mg .ROUTE .STK-MED ONE Ondansetron HCl 4 mg 01/31/20 22:56 Zofran IVPUSH ONETIME PRN Nausea/Vomiting Propofol Confirm 01/31/20 21:53 Diprivan 20 Ml Administered 01/31/20 21:54 Dose 200 mg .ROUTE .STK-MED ONE Rocuronium [place] Confirm 01/31/20 21:53 Zemuron Administered 01/31/20 21:54 Dose 50 mg .ROUTE .STK-MED ONE Scopolamine 1.5 mg 01/31/20 21:38 01/31/20 21:59 Transderm-Scop TRDERM 01/31/20 21:39 1.5 mg ONETIME ONE Administration Sugammadex Sodium Confirm 01/31/20 22:53 Bridion Administered 01/31/20 22:54 Dose 500 mg .ROUTE .STK-MED ONE - Re-Assessments/Exams Free Text/Narrative Re-Assessment/Exam: Patient is a 39-year-old female presenting to the emergency department with complaints of heavy vaginal bleeding after intercourse. She is 9 weeks post vaginal hysterectomy. At the time of exam, she does have a moderate amount of blood present on the pad beneath her in bed. Vaginal exam has been deferred at this point. I called and spoke with the RECORDER HELPER SEISMOGRAPH on-call, Dr. Tovar. She is on her way in to see the patient. I ordered IV insertion with NS wide open as well as a CBC and type and screen. 01/31/20 21:05 Guy is here to examine the patient. She will take her to the OR. Or crew has been called. Departure - Departure Time of Disposition: 21:06 Disposition: DC/Tfer to [facility] Condition: Good Clinical Impression: Dehiscence of vaginal cuff - Discharge Information Sepsis Event Note (ED) - Evaluation Sepsis Screening Result: No Definite Risk - Focused Exam Vital Signs: Vital Signs Temp Pulse Resp BP Pulse Ox 02/01/20 08:37 98.4 F 81 14 106/59 L 100 - My Orders Last 24 Hours: My Active Orders 01/31/20 21:03 Patient Status [ADT] Routine 01/31/20 21:04 Schedule Procedure [COMM] Stat - Assessment/Plan Last 24 Hours: My Active Orders 01/31/20 21:03 Patient Status [ADT] Routine 01/31/20 21:04 Schedule Procedure [COMM] Stat
--- NOTE | 2020-01-31 21:19 | PCM.HP.2 ---
H&P History of Present Illness - General Date of Service: 01/31/20 Admit Problem/Dx: Admission Diagnosis/Problem Admission Diagnosis/Problem Dehiscence of surgical wound - History of Present Illness Initial Comments - Free Text/Narative: 39 year old female status post total vaginal hysterectomy 11/21/2019. [facility]en [facility] for postoperative care and cleared for full activity. No complications. Has had intercourse twice since. Tonight was having sex and began having very heavy vaginal bleeding. Presents to the ER with significant bleeding. Denies pain. Vaginal Pain Score (Numeric/FACES): 6 - Related Data Allergies/Adverse Reactions: Allergies Allergy/AdvReac Type Severity Reaction Status Date / Time Penicillins Allergy Severe Other Verified 01/31/20 20:23 sumatriptan [From Imitrex] AdvReac Severe Nausea and Verified 01/31/20 20:23 Vomiting Home Medications: Home Meds Promethazine [Phenadoz] 12.5 mg TOP BID PRN 09/26/19 [History] Gabapentin [Neurontin] 600 mg PO BEDTIME PRN 11/20/19 [History] Multivitamin 1 tab PO DAILY 11/20/19 [History] Rizatriptan Benzoate [Rizatriptan] 10 mg PO ASDIRECTED PRN 11/20/19 [History] Acetaminophen/oxyCODONE [Percocet 325-5 MG] 1 - 2 tab PO Q6H PRN #30 tab 11/21/19 [Rx] Past Medical History - Past Health History Medical/Surgical History: Denies Medical/Surgical History HEENT History: Reports: Allergic Rhinitis, Sinusitis Cardiovascular History: Reports: None Respiratory History: Reports: Other (See Below) Other Respiratory History: acute URI Gastrointestinal History: Reports: Other (See Below) Other Gastrointestinal History: hx/o elevated liver enzymes Genitourinary History: Reports: None 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 , , 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 Other OB/BYN History: hx ectopic ; 2 SAB Musculoskeletal History: Reports: None Neurological History: Reports: Migraines Psychiatric History: Reports: Anxiety, Depression Endocrine/Metabolic History: Reports: None Hematologic History: Reports: Anemia Other Hematologic History: Pt states blood is "too thick." Immunologic History: Reports: None Oncologic (Cancer) History: Reports: None Dermatologic History: Reports: Other (See Below) Other Dermatologic History: skin infection - Infectious Disease History Infectious Disease History: Reports: None - Past Surgical History HEENT Surgical History: Reports: Tonsillectomy GI Surgical History: Reports: None Female Surgical History: Reports: Tubal Ligation, Other (See Below) Other Female Surgeries/Procedures: Left Salpingectomy due to eptopic pregancy-2013. Endocrine Surgical History: Reports: None Musculoskeletal Surgical History: Reports: Other (See Below) Other Musculoskeletal Surgeries/Procedures:: pt states that she has had her finger sewn back on---left 4th digit. Foot surgery. Social & Family History - Family History Family Medical History: No Pertinent Family History - Tobacco Use Tobacco Use Status *Q: Current Every Day Tobacco User Years of Tobacco use: 20 Packs/Tins Daily: 0.2 - Caffeine Use Caffeine Use: Reports: Energy Drinks, Soda - Recreational Drug Use Recreational Drug Use: Yes Drug Use in Last 12 Months: No Recreational Drug Type: Reports: Other (see below) Other Recreational Drug Type: adderral - Living Situation & Occupation Living situation: Reports: Other Occupation: Unemployed H&P Review of Systems - Review of Systems: Review Of Systems: See Below General: Reports: No Symptoms HEENT: Reports: No Symptoms Pulmonary: Reports: No Symptoms Cardiovascular: Reports: No Symptoms Gastrointestinal: Reports: No Symptoms Genitourinary: Reports: No Symptoms Musculoskeletal: Reports: No Symptoms Skin: Reports: No Symptoms Psychiatric: Reports: No Symptoms Neurological: Reports: No Symptoms Hematologic/Lymphatic: Reports: No Symptoms Immunologic: Reports: No Symptoms Exam - Exam Exam: See Below - Vital Signs Vital Signs: Last Vital Signs Temp 36.6 C 01/31/20 20:20 Pulse 112 H 01/31/20 20:20 Resp 16 01/31/20 20:20 BP 152/92 H 01/31/20 20:20 Pulse Ox 98 01/31/20 20:20 Weight: 57.72 kg - Exam General: Alert, Oriented, 4 HEENT: Conjunctiva Clear, PERRLA Neck: Supple, Trachea Midline Lungs: Clear to Auscultation, Normal Respiratory Effort Cardiovascular: Regular Rate, Regular Rhythm GI/Abdominal Exam: Normal Bowel Sounds, No Distention (Female) Exam: Other. No: Vaginal Tears (significant blood in vaginal vault. After clearing about 300 mL of blood and clot am able to partially visualize vaginal cuff which is open) Rectal (Female) Exam: Normal Rectal Tone Back Exam: Normal Inspection, Full Range of Motion, NT Extremities: Normal Inspection, Normal Range of Motion, Non-Tender, No Pedal Edema, Normal Capillary Refill Skin: Warm, Dry, Intact Neurological: Cranial Nerves Intact Neuro Extensive - Mental Status: Alert, Oriented x3, Normal Mood/Affect Psychiatric: Alert, Normal Affect, Normal Mood - Patient Data Lab Results Last 24 hrs: Laboratory Results - last 24 hr 01/31/20 Range/Units 20:40 WBC 9.28 (3.98-10.04) K/mm3 RBC 4.13 (3.98-5.22) M/mm3 Hgb 13.3 (11.2-15.7) gm/dl Hct 41.0 (34.1-44.9) % MCV 99.3 H (79.4-94.8) fl MCH 32.2 (25.6-32.2) pg MCHC 32.4 (32.2-35.5) g/dl RDW Std Deviation 45.3 (36.4-46.3) fL Plt Count 262 (182-369) K/mm3 MPV 10.4 (9.4-12.3) fl Neut % (Auto) 72.6 H (34.0-71.1) % Lymph % (Auto) 22.3 (19.3-51.7) % [place] % (Auto) 3.8 L (4.7-12.5) % Eos % (Auto) 1.0 (0.7-5.8) Baso % (Auto) 0.1 (0.1-1.2) % Neut # (Auto) 6.74 H (1.56-6.13) K/mm3 Lymph # (Auto) 2.07 (1.18-3.74) K/mm3 [place] # (Auto) 0.35 (0.24-0.36) K/mm3 Eos # (Auto) 0.09 (0.04-0.36) K/mm3 Baso # (Auto) 0.01 (0.01-0.08) K/mm3 Result Diagrams: 01/31/20 20:40 Sepsis Event Note - Evaluation Sepsis Screening Result: No Definite Risk - Focused Exam Vital Signs: Vital Signs Temp Pulse Resp BP Pulse Ox 12/24/20 20:20 36.6 C 112 H 16 152/92 H 98 - Problem List (1) Hemorrhage SNOMED Code(s): 529299480 ICD Code: R58 - HEMORRHAGE, NOT ELSEWHERE CLASSIFIED Status: Acute Current Visit: Yes (2) Hemorrhage SNOMED Code(s): 707041200 ICD Code: R58 - HEMORRHAGE, NOT ELSEWHERE CLASSIFIED Status: Acute Current Visit: Yes (3) Dehiscence of vaginal cuff SNOMED Code(s): 57686694, 302907034 ICD Code: T81.31XA - DISRUPTION OF EXTERNAL OPERATION (SURGICAL) WOUND, NEC, INIT Status: Acute Current Visit: Yes Qualifiers: Encounter type: initial encounter Qualified Code(s): T81.31XA - Disruption of external operation (surgical) wound, not elsewhere classified, initial encounter Problem List Initiated/Reviewed/Updated: Yes Orders Last 24hrs: Active Orders 24 hr Category Date Time Status Patient Status [ADT] Routine ADT 01/31/20 21:03 Active CORONAVIRUS COVID-19 JORDY [MOLEC] Urgent Lab 01/31/20 21:05 Received CORONAVIRUS COVID-19 RAPID [MOLEC] Stat Lab 01/31/20 20:59 Received TYPE AND SCREEN [BBK] Stat Lab 01/31/20 20:40 Received Sodium Chloride 0.9% [Normal Saline] 1,000 ml Med 01/31/20 20:38 Active IV NOW Schedule Procedure [COMM] Stat Oth 01/31/20 21:04 Ordered Medication Orders Sodium Chloride (Normal Saline) 1,000 mls @ 999 mls/hr IV NOW STA Stop: 01/31/20 21:38 Last Admin: 01/31/20 20:40 Dose: 999 mls/hr Documented by: ARLENE Assessment/Plan Comment:: Vaginal cuff dehiscence with hemorrhage. Discussed repair with patient. Discussed possibility of need for blood transfusion despite excellent starting hemoglobin given degree of bleeding. consented for exam under anesthesia, repair of vaginal cuff and possible laparotomy. Patient voices understanding with plan. - Mortality Measure Prognosis:: Good
[2020-01-31] MEDS ORDERED: HYDROmorphone 0.5 MG/0.5 ML Syringe IVPUSH ONE (21:26)
--- NOTE | 2020-01-31 21:33 | PCM.PREANE ---
Preanesthetic Assessment - Procedure Proposed Procedure: Posterior Vaginal Cuff Repair, EUA - Anesthesia/Transfusion/Family Hx Anesthesia History: Prior Anesthesia Reaction (hard tiime waking up) Type of Anesthesia Reaction: Excessive Nausea/Vomiting Family History of Anesthesia Reaction: No Transfusion History: No Prior Transfusion(s) Intubation History: Unknown - Review of Systems General: No Symptoms Pulmonary: No Symptoms (ROGE, Smoker: 1/4ppd times 20 yrs./History of Meth use 2014, ETOH occasionally), Cough (dry chronic) Cardiovascular: No Symptoms, Palpitations (anxiety) Gastrointestinal: No Symptoms (GERD-controlled) Neurological: No Symptoms, Headache (Migraines), Numbness (2 toes on right foot since foot surgery), Seizure (last noted 2014) Other: Reports: None, Easy Bruising, Sinus Problem (seasonal allergies), Depression, Anxiety - Physical Assessment NPO Status Date: 01/31/20 NPO Status Time: 19:00 (cheese pizza) Vital Signs: Last Vital Signs Temp 36.6 C 01/31/20 20:20 Pulse 112 H 01/31/20 20:20 Resp 16 01/31/20 20:20 BP 152/92 H 01/31/20 20:20 Pulse Ox 98 01/31/20 20:20 Height: 1.63 m Weight: 57.72 kg ASA Class: 2E Mental Status: Alert & Oriented x3 Airway Class: Mallampati = 2 Dentition: Reports: Normal Dentition, Caries Thyro-Mental Finger Breadths: 3 Mouth Opening Finger Breadths: 3 ROM/Head Extension: Full Lungs: Clear to Auscultation, Normal Respiratory Effort Cardiovascular: Regular Rate, Regular Rhythm, No Murmurs - Lab Values: Laboratory Last Values WBC 9.28 K/mm3 (3.98-10.04) 01/31/20 20:40 RBC 4.13 M/mm3 (3.98-5.22) 01/31/20 20:40 Hgb 13.3 gm/dl (11.2-15.7) 01/31/20 20:40 Hct 41.0 % (34.1-44.9) 01/31/20 20:40 MCV 99.3 fl (79.4-94.8) H 01/31/20 20:40 MCH 32.2 pg (25.6-32.2) 01/31/20 20:40 MCHC 32.4 g/dl (32.2-35.5) 01/31/20 20:40 RDW Std Deviation 45.3 fL (36.4-46.3) 01/31/20 20:40 Plt Count 262 K/mm3 (182-369) 01/31/20 20:40 MPV 10.4 fl (9.4-12.3) 01/31/20 20:40 Neut % (Auto) 72.6 % (34.0-71.1) H 01/31/20 20:40 Lymph % (Auto) 22.3 % (19.3-51.7) 01/31/20 20:40 [place] % (Auto) 3.8 % (4.7-12.5) L 01/31/20 20:40 Eos % (Auto) 1.0 (0.7-5.8) 01/31/20 20:40 Baso % (Auto) 0.1 % (0.1-1.2) 01/31/20 20:40 Neut # (Auto) 6.74 K/mm3 (1.56-6.13) H 01/31/20 20:40 Lymph # (Auto) 2.07 K/mm3 (1.18-3.74) 01/31/20 20:40 [place] # (Auto) 0.35 K/mm3 (0.24-0.36) 01/31/20 20:40 Eos # (Auto) 0.09 K/mm3 (0.04-0.36) 01/31/20 20:40 Baso # (Auto) 0.01 K/mm3 (0.01-0.08) 01/31/20 20:40 SARS CoV-2 RNA Rapid JORDY Negative (NEGATIVE) 01/31/20 20:59 Blood Type O POSITIVE 01/31/20 20:40 All labs reviewed and noted and within acceptable ranges to proceed with procedure. - Allergies Allergies/Adverse Reactions: Allergies Allergy/AdvReac Type Severity Reaction Status Date / Time Penicillins Allergy Severe Other Verified 01/31/20 20:23 sumatriptan [From Imitrex] AdvReac Severe Nausea and Verified 01/31/20 20:23 Vomiting - Blood Blood Available: Yes Product(s) Available: PRBC - Anesthesia Plan Pre-Op Medication Ordered: Other (scopalamine patch in preop area @ 2945) - Acknowledgements Anesthesia Type Planned: General Anesthesia Pt an Appropriate Candidate for the Planned Anesthesia: Yes Alternatives and Risks of Anesthesia Discussed w Pt/Guardian: Yes Pt/Guardian Understands and Agrees with Anesthesia Plan: Yes PreAnesthesia Questionnaire - Past Health History Medical/Surgical History: Denies Medical/Surgical History HEENT History: Reports: Allergic Rhinitis, Sinusitis Cardiovascular History: Reports: None Respiratory History: Reports: Other (See Below) Other Respiratory History: acute URI Gastrointestinal History: Reports: Other (See Below) Other Gastrointestinal History: hx/o elevated liver enzymes Genitourinary History: Reports: None 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 , , 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 Other OB/BYN History: hx ectopic ; 2 SAB Musculoskeletal History: Reports: None Neurological History: Reports: Migraines Psychiatric History: Reports: Anxiety, Depression Endocrine/Metabolic History: Reports: None Hematologic History: Reports: Anemia Other Hematologic History: Pt states blood is "too thick." Immunologic History: Reports: None Oncologic (Cancer) History: Reports: None Dermatologic History: Reports: Other (See Below) Other Dermatologic History: skin infection - Infectious Disease History Infectious Disease History: Reports: None - Past Surgical History HEENT Surgical History: Reports: Tonsillectomy GI Surgical History: Reports: None Female Surgical History: Reports: Tubal Ligation, Other (See Below) Other Female Surgeries/Procedures: Left Salpingectomy due to eptopic pregancy-2012. Endocrine Surgical History: Reports: None Musculoskeletal Surgical History: Reports: Other (See Below) Other Musculoskeletal Surgeries/Procedures:: pt states that she has had her finger sewn back on---left 4th digit. Foot surgery. - SUBSTANCE USE Tobacco Use Status *Q: Current Every Day Tobacco User Tobacco Use Within Last Twelve Months: Cigarettes Recreational Drug Use History: Yes Recreational Drug Type: Reports: Other (see below) - HOME MEDS Home Medications: Home Meds Promethazine [Phenadoz] 12.5 mg TOP BID PRN 09/26/19 [History] Gabapentin [Neurontin] 600 mg PO BEDTIME PRN 11/20/19 [History] Multivitamin 1 tab PO DAILY 11/20/19 [History] Rizatriptan Benzoate [Rizatriptan] 10 mg PO ASDIRECTED PRN 11/20/19 [History] Acetaminophen/oxyCODONE [Percocet 325-5 MG] 1 - 2 tab PO Q6H PRN #30 tab 11/21/19 [Rx] - CURRENT (IN HOUSE) MEDS Current Meds: Current Medications Sodium Chloride (Normal Saline) 1,000 mls @ 999 mls/hr IV NOW STA Stop: 01/31/20 21:38 Last Admin: 01/31/20 20:40 Dose: 999 mls/hr Documented by: Discontinued Medications Hydromorphone HCl (Dilaudid) 0.5 mg IVPUSH ONETIME ONE Stop: 01/31/20 21:27
[2020-01-31] MEDS ORDERED: Scopolamine 1.5 MG Transdermal Patch TRDERM ONE (21:38)
[2020-01-31] MEDS ORDERED: Sodium Chloride 0.9% 1,000 ML ONE ×2 (21:48→22:19)
[2020-01-31] MEDS ORDERED: Sodium Chloride 0.9% 1,000 ML IV ONE (21:48)
[2020-01-31] MEDS ORDERED: Ondansetron 4 MG/2 ML SDV ONE (21:53)
[2020-01-31] MEDS ORDERED: Lidocaine 1% 4 ML ONE (21:53)
[2020-01-31] MEDS ORDERED: Dexamethasone 4 MG/ML 5 ML MDV ONE (21:53)
[2020-01-31] MEDS ORDERED: Midazolam 1 MG/ML 2 ML SDV ONE (21:53)
[2020-01-31] MEDS ORDERED: Propofol 200 MG/20 ML SDV ONE (21:53)
[2020-01-31] MEDS ORDERED: Succinylcholine/Sod PF 100 MG/5 ML SYRINGE IV ONE (21:53)
[2020-01-31] MEDS ORDERED: Lactated Ringers 2,000 ML ONE (21:53)
[2020-01-31] MEDS ORDERED: Ketorolac 30 MG/ML SDV ONE (21:53)
[2020-01-31] MEDS ORDERED: Rocuronium 50 MG/5 ML Vial ONE (21:53)
[2020-01-31] MEDS ORDERED: fentaNYL 250 MCG/5 ML SDV ONE (21:54)
[2020-01-31] MEDS ORDERED: Sodium Chloride 0.9% 250 ML ONE (21:54)
[2020-01-31] MEDS ORDERED: Sodium Chloride 0.9% 250 ML IV SCH (21:58)
[2020-01-31] MEDS ORDERED: Glycopyrrolate 0.2 MG/ML SDV ONE (22:37)
[2020-01-31] MEDS ORDERED: Ibuprofen 400 MG Tab PO PRN (22:46)
[2020-01-31] MEDS ORDERED: Acetaminophen/HYDROcodone 325-5 MG Tab PO PRN (22:46)
--- NOTE | 2020-01-31 22:46 | PCM.OPNOTE ---
- General Post-Op/Procedure Note Date of Surgery/Procedure: 01/31/20 Operative Procedure(s): Exam under anesthesia, repair of posterior vaginal laceration Findings: Intact vaginal cuff, posterior vaginal wall laceration 9 cm in length by 2 cm deep at most internal point Pre Op Diagnosis: vaginal cuff dehiscence Post-Op Diagnosis: posterior vaginal cuff laceration Primary Surgeon: Natalie Ramírez Output, Urine Amount: 600 (360 (1 unit pRBC)) EBL in mLs: 100 (2000 preop) Complications: None Condition: Good Free Text/Narrative:: Patient taken to operating room for exam under anesthesia and repair of likely vaginal cuff separation. Difficult visualization in ER related to heavy bleeding and difficulty tolerating exam. Prepped in lithotomy under usual sterile fashion after GETA initiated. Weighed speculum placed. Cuff visualized and no bleeding noted. Reinspected. Intact. Sterile speculum removed slowly and vagina inspected. Large posterior laceration visualized. 9 cm in length nearly to the level of the cuff posteriorly. 2 cm deep. Repaired in 3 layer fashion. Deep interrupted sutures in two layers of 0- vicryl. Upper running layer of 2-0 obtained excellent hemostasis. Vagina fully inspected. No other areas of laceration. Second unit pRBC initiated. Will be extubated and taken to PACU for planned floor observation.
[2020-01-31] MEDS ORDERED: Ondansetron 4 MG/2 ML SDV IVPUSH PRN (22:56)
[2020-01-31] MEDS ORDERED: ePHEDrine 50 MG/ML SDV IVPUSH PRN (22:56)
[2020-01-31] MEDS ORDERED: fentaNYL 100 MCG/2 ML SDV IVPUSH PRN (22:56)
[2020-01-31] MEDS ORDERED: diphenhydrAMINE 50 MG/ML SDV IVPUSH PRN (22:56)
--- NOTE | 2020-01-31 23:17 | PCM.POSTAN ---
POST ANESTHESIA ASSESSMENT - MENTAL STATUS Mental Status: Alert - VITAL SIGNS Vital Signs: Last Vital Signs Temp 97.9 01/31/202299 Pulse 120 01/31/200 Resp 16 01/31/202299 BP 116/58 01/31/202299 Pulse Ox 100% 01/31/202299 - RESPIRATORY Respiratory Status: Respiratory Rate WNL, Airway Patent, O2 Saturation Stable - CARDIOVASCULAR CV Status: Pulse Rate WNL, Blood Pressure Stable - GASTROINTESTINAL GI Status: No Symptoms - POST OP HYDRATION Hydration Status: Adequate & Stable
--- NOTE | 2020-01-31 23:41 | PCM48HPAN ---
Post Anesthesia Note - EVALUATION WITHIN 48HRS OF ANESTHETIC Vital Signs in Normal Range: Yes Patient Participated in Evaluation: Yes Respiratory Function Stable: Yes Airway Patent: Yes Cardiovascular Function Stable: Yes Hydration Status Stable: Yes Pain Control Satisfactory: Yes Nausea and Vomiting Control Satisfactory: Yes Mental Status Recovered: Yes Vital Signs: Last Vital Signs Temp 36.7 C 01/31/20 23:30 Pulse 88 01/31/20 23:30 Resp 16 01/31/20 23:30 BP 111/81 01/31/20 23:30 Pulse Ox 100 01/31/20 23:30
--- NOTE | 2020-02-01 07:35 | PCM.DCSUM1 ---
Discharge Summary - Hospital Course Brief History: Admitted with suspected cuff separation. Posterior vaginal laceration repaired under anesthesia. Diagnosis: Stroke: No - Discharge Data Discharge Date: 02/01/20 Discharge Disposition: Home, Self-Care 01 Condition: Good - Referral to Home Health Primary Care Physician: Génesis Mac MD - Discharge Diagnosis/Problem(s) (1) Hemorrhage SNOMED Code(s): 714126292 ICD Code: R58 - HEMORRHAGE, NOT ELSEWHERE CLASSIFIED Status: Acute Current Visit: Yes (2) Hemorrhage SNOMED Code(s): 843427389 ICD Code: R58 - HEMORRHAGE, NOT ELSEWHERE CLASSIFIED Status: Acute Current Visit: Yes (3) Dehiscence of vaginal cuff SNOMED Code(s): 42105718, 559522643 ICD Code: T81.31XA - DISRUPTION OF EXTERNAL OPERATION (SURGICAL) WOUND, NEC, INIT Status: Suspected Current Visit: Yes Qualifiers: Encounter type: initial encounter Qualified Code(s): T81.31XA - Disruption of external operation (surgical) wound, not elsewhere classified, initial encounter - Patient Summary/Data Operative Procedure(s) Performed: Exam under anesthesia, repair of posterior vaginal laceration - Patient Instructions Diet: Usual Diet as Tolerated Activity: No Strenuous Activities Driving: Do Not Drive Notify Provider of: Fever, Increased Pain, Swelling and Redness, Drainage, Nausea and/or Vomiting - Discharge Plan *PRESCRIPTION DRUG MONITORING PROGRAM REVIEWED*: No *COPY OF PRESCRIPTION DRUG MONITORING REPORT IN PATIENT DESTINY: No Home Medications: Home Meds Promethazine [Phenadoz] 12.5 mg TOP BID PRN 09/26/19 [History] Gabapentin [Neurontin] 600 mg PO BEDTIME PRN 11/20/19 [History] Multivitamin 1 tab PO DAILY 11/20/19 [History] Rizatriptan Benzoate [Rizatriptan] 10 mg PO ASDIRECTED PRN 11/20/19 [History] Acetaminophen/oxyCODONE [Percocet 325-5 MG] 1 - 2 tab PO Q6H PRN #30 tab 11/21/19 [Rx] Forms: ED Department Discharge Referrals: Génesis Mac MD [Primary Care Provider] - (1 week) - Discharge Summary/Plan Comment DC Time >30 min.: No - General Info Date of Service: 02/01/20 Functional Status: Reports: Pain Controlled - Review of Systems General: Reports: No Symptoms HEENT: Reports: No Symptoms Pulmonary: Reports: No Symptoms Cardiovascular: Reports: No Symptoms Gastrointestinal: Reports: No Symptoms Genitourinary: Reports: No Symptoms Musculoskeletal: Reports: No Symptoms Skin: Reports: No Symptoms Neurological: Reports: No Symptoms Psychiatric: Reports: No Symptoms - Patient Data Vitals - Most Recent: Last Vital Signs Temp 37.1 C 02/01/20 04:00 Pulse 85 02/01/20 04:00 Resp 14 02/01/20 04:00 BP 93/55 L 02/01/20 04:00 Pulse Ox 99 02/01/20 04:00 Weight - Most Recent: 60.555 kg I&O - Last 24 hours: Intake & Output 01/31/20 02/01/20 02/01/20 22:59 06:59 14:59 Intake Total 1410 Output Total 600 705 Balance -600 705 Lab Results - Last 24 hrs: Laboratory Results - last 24 hr 01/31/20 01/31/20 01/31/20 Range/Units 20:40 20:40 20:40 WBC 9.28 (3.98-10.04) K/mm3 RBC 4.13 (3.98-5.22) M/mm3 Hgb 13.3 (11.2-15.7) gm/dl Hct 41.0 (34.1-44.9) % MCV 99.3 H (79.4-94.8) fl MCH 32.2 (25.6-32.2) pg MCHC 32.4 (32.2-35.5) g/dl RDW Std Deviation 45.3 (36.4-46.3) fL Plt Count 262 (182-369) K/mm3 MPV 10.4 (9.4-12.3) fl Neut % (Auto) 72.6 H (34.0-71.1) % Lymph % (Auto) 22.3 (19.3-51.7) % [place] % (Auto) 3.8 L (4.7-12.5) % Eos % (Auto) 1.0 (0.7-5.8) Baso % (Auto) 0.1 (0.1-1.2) % Neut # (Auto) 6.74 H (1.56-6.13) K/mm3 Lymph # (Auto) 2.07 (1.18-3.74) K/mm3 [place] # (Auto) 0.35 (0.24-0.36) K/mm3 Eos # (Auto) 0.09 (0.04-0.36) K/mm3 Baso # (Auto) 0.01 (0.01-0.08) K/mm3 SARS-CoV-2 RNA (JORDY) (NEGATIVE) SARS CoV-2 RNA Rapid JORDY (NEGATIVE) Blood Type O POSITIVE Gel Antibody Screen Negative Crossmatch See Detail See Detail 01/31/20 01/31/20 01/31/20 Range/Units 20:59 21:05 21:55 WBC (3.98-10.04) K/mm3 RBC (3.98-5.22) M/mm3 Hgb 10.6 L D (11.2-15.7) gm/dl Hct 33.0 L (34.1-44.9) % MCV (79.4-94.8) fl MCH (25.6-32.2) pg MCHC (32.2-35.5) g/dl RDW Std Deviation (36.4-46.3) fL Plt Count (182-369) K/mm3 MPV (9.4-12.3) fl Neut % (Auto) (34.0-71.1) % Lymph % (Auto) (19.3-51.7) % [place] % (Auto) (4.7-12.5) % Eos % (Auto) (0.7-5.8) Baso % (Auto) (0.1-1.2) % Neut # (Auto) (1.56-6.13) K/mm3 Lymph # (Auto) (1.18-3.74) K/mm3 [place] # (Auto) (0.24-0.36) K/mm3 Eos # (Auto) (0.04-0.36) K/mm3 Baso # (Auto) (0.01-0.08) K/mm3 SARS-CoV-2 RNA (JORDY) Negative (NEGATIVE) SARS CoV-2 RNA Rapid JORDY Negative (NEGATIVE) Blood Type Gel Antibody Screen Crossmatch 02/01/20 Range/Units 05:12 WBC 9.41 (3.98-10.04) K/mm3 RBC 3.76 L (3.98-5.22) M/mm3 Hgb 11.2 (11.2-15.7) gm/dl Hct 35.2 (34.1-44.9) % MCV 93.6 D (79.4-94.8) fl MCH 29.8 (25.6-32.2) pg MCHC 31.8 L (32.2-35.5) g/dl RDW Std Deviation 58.8 H (36.4-46.3) fL Plt Count 181 L D (182-369) K/mm3 MPV 11.2 (9.4-12.3) fl Neut % (Auto) 92.1 H (34.0-71.1) % Lymph % (Auto) 6.5 L (19.3-51.7) % [place] % (Auto) 1.2 L (4.7-12.5) % Eos % (Auto) 0 L (0.7-5.8) Baso % (Auto) 0.0 L (0.1-1.2) % Neut # (Auto) 8.67 H (1.56-6.13) K/mm3 Lymph # (Auto) 0.61 L (1.18-3.74) K/mm3 [place] # (Auto) 0.11 L (0.24-0.36) K/mm3 Eos # (Auto) 0.00 L (0.04-0.36) K/mm3 Baso # (Auto) 0.00 L (0.01-0.08) K/mm3 SARS-CoV-2 RNA (JORDY) (NEGATIVE) SARS CoV-2 RNA Rapid JORDY (NEGATIVE) Blood Type Gel Antibody Screen Crossmatch Med Orders - Current: Current Medications Hydrocodone Bitart/Acetaminophen ([place] 325-5 Mg) 1 tab PO Q3H PRN PRN Reason: Pain (moderate 4-6) Last Admin: 02/01/20 00:51 Dose: 1 tab Documented by: Diphenhydramine HCl (Benadryl) 25 mg IVPUSH Q6H PRN PRN Reason: pruritis Ephedrine Sulfate (Ephedrine Sulfate) 5 mg IVPUSH ASDIRECTED PRN PRN Reason: Hypotension Fentanyl (Sublimaze) 50 mcg IVPUSH Q5M PRN PRN Reason: Pain Sodium Chloride (Normal Saline) 250 mls @ 999 mls/hr IV ASDIRECTED NICOLÁS Last Admin: 01/31/20 21:58 Dose: 999 mls/hr Documented by: Ibuprofen (Motrin) 600 mg PO Q6H PRN PRN Reason: Pain (mild 1-3) Last Admin: 02/01/20 04:22 Dose: 600 mg Documented by: Ondansetron HCl (Zofran) 4 mg IVPUSH ONETIME PRN PRN Reason: Nausea/Vomiting Discontinued Medications Dexamethasone (Dexamethasone) Confirm Administered Dose 20 mg .ROUTE .STK-MED ONE Stop: 01/31/20 21:54 Fentanyl (Sublimaze) Confirm Administered Dose 250 mcg .ROUTE .STK-MED ONE Stop: 01/31/20 21:55 Glycopyrrolate (Robinul) Confirm Administered Dose 0.2 mg .ROUTE .STK-MED ONE Stop: 01/31/20 22:38 Glycopyrrolate (Robinul) Confirm Administered Dose 0.8 mg .ROUTE .STK-MED ONE Stop: 01/31/20 22:38 Glycopyrrolate (Robinul) Confirm Administered Dose 0.4 mg .ROUTE .STK-MED ONE Stop: 01/31/20 22:51 Hydromorphone HCl (Dilaudid) 0.5 mg IVPUSH ONETIME ONE Stop: 01/31/20 21:27 Last Admin: 01/31/20 21:31 Dose: 0.5 mg Documented by: Sodium Chloride (Normal Saline) 1,000 mls @ 999 mls/hr IV NOW STA Stop: 01/31/20 21:38 Last Admin: 01/31/20 20:40 Dose: 999 mls/hr Documented by: Sodium Chloride (Normal Saline) Confirm Administered Dose 1,000 mls @ as directed .ROUTE .STK-MED ONE Stop: 01/31/20 21:49 Last Admin: 01/31/20 22:19 Dose: Not Given Documented by: Lidocaine HCl (Xylocaine-Mpf 1%) Confirm Administered Dose 4 mls @ as directed .ROUTE .STK-MED ONE Stop: 01/31/20 21:54 Lactated Ringer's (Ringers, Lactated) Confirm Administered Dose 2,000 mls @ as directed .ROUTE .STK-MED ONE Stop: 01/31/20 21:54 Sodium Chloride (Normal Saline) Confirm Administered Dose 250 mls @ as directed .ROUTE .STK-MED ONE Stop: 01/31/20 21:55 Last Admin: 01/31/20 22:19 Dose: Not Given Documented by: Sodium Chloride (Normal Saline) 1,000 mls @ 1,000 mls/hr IV ONETIME ONE Stop: 01/31/20 22:47 Last Admin: 01/31/20 21:48 Dose: 1,000 mls/hr Documented by: Sodium Chloride (Normal Saline) Confirm Administered Dose 1,000 mls @ as directed .ROUTE .STK-MED ONE Stop: 01/31/20 22:20 Ketorolac Tromethamine (Toradol) Confirm Administered Dose 30 mg .ROUTE .STK-MED ONE Stop: 01/31/20 21:54 Midazolam HCl (Versed 1 Mg/Ml) Confirm Administered Dose 2 mg .ROUTE .STK-MED ONE Stop: 01/31/20 21:54 Miscellaneous Medication (Phenylephrine 1 Mg/10 Ml-Ns) Confirm Administered Dose 1 mg .ROUTE .STK-MED ONE Stop: 01/31/20 21:56 Miscellaneous Medication (Phenylephrine 1 Mg/10 Ml-Ns) 0 mg IVPUSH ONETIME ONE Stop: 01/31/20 22:57 Neostigmine Methylsulfate (Neostigmine Methylsulfate) Confirm Administered Dose 5 mg .ROUTE .STK-MED ONE Stop: 01/31/20 22:38 Neostigmine Methylsulfate (Neostigmine Methylsulfate) Confirm Administered Dose 5 mg .ROUTE .STK-MED ONE Stop: 01/31/20 22:51 Ondansetron HCl (Zofran) Confirm Administered Dose 4 mg .ROUTE .STK-MED ONE Stop: 01/31/20 21:54 Propofol (Diprivan 20 Ml) Confirm Administered Dose 200 mg .ROUTE .STK-MED ONE Stop: 01/31/20 21:54 Rocuronium [place] (Zemuron) Confirm Administered Dose 50 mg .ROUTE .STK-MED ONE Stop: 01/31/20 21:54 Scopolamine (Transderm-Scop) 1.5 mg TRDERM ONETIME ONE Stop: 01/31/20 21:39 Last Admin: 01/31/20 21:59 Dose: 1.5 mg Documented by: Sugammadex Sodium ([place]) Confirm Administered Dose 500 mg .ROUTE .[place] IT-MED ONE Stop: 01/31/20 22:54 - Exam General: Reports: Alert, Oriented HEENT: Reports: Pupils Equal, Pupils Reactive, EOMI, Mucous Membr. Moist/[place] Neck: Reports: Supple Lungs: Reports: Clear to Auscultation, Normal Respiratory Effort Cardiovascular: Reports: Regular Rate, Regular Rhythm GI/Abdominal Exam: Normal Bowel Sounds, Soft, Non-Tender, No Organomegaly, No Distention, No Abnormal Bruit, No Mass, Pelvis Stable Rectal (Female) Exam: Normal Exam Back Exam: Reports: Normal Inspection, Full Range of Motion Extremities: Normal Inspection, Normal Range of Motion, Non-Tender, No Pedal Edema, Normal Capillary Refill Skin: Reports: Warm, Dry, Intact Wound/Incisions: Reports: Healing Well Neurological: Reports: No New Focal Deficit Psy/Mental Status: Reports: Alert, Normal Affect, Normal Mood
[2020-02-01] MEDS ORDERED: Ibuprofen 600 MG Tab PO PRN (08:30)
[2020-02-01 08:58] VITALS: BP 106/59; PULSE 81
== END 2020-02-01 08:47 | disposition home or self-care (01) ==
LOC: JD.ED 20:11 → JD.SDS 21:06 → JD.OB 02-01 00:15 → JD.SDS 02-01 08:47
PROVIDERS: ATTEND Obstetrics & Gynecology
DX: T81.31XA Disruption of external operation (surgical) wound, not elsewhere classified, initial encounter (principal); F41.9 Anxiety disorder, unspecified; F32.9 Major depressive disorder, single episode, unspecified; F17.210 Nicotine dependence, cigarettes, uncomplicated; Z01.812 Encounter for preprocedural laboratory examination; Z20.828 Contact with and (suspected) exposure to other viral communicable diseases; Z88.0 Allergy status to penicillin; Z88.8 Allergy status to other drugs, medicaments and biological substances; Z79.899 Other long term (current) drug therapy; Z98.890 Other specified postprocedural states; Z90.89 Acquired absence of other organs
CPT/HCPCS: 00942; 36415; 36430; 85014; 85018; 85025; 86850; 86900; 86901; 86922; A9270-GY; J0330; J1100; J1170; J1885; J2001; J2250; J2370; J2405; J2704; J2710; J3010; J3490; J7030; J7050; J7120; P9016; U0002